=== PATIENT | male | born 1975 | race Caucasian/White ===

== ENCOUNTER 2017-06-15 22:21 | Emergency (ER) | payer SELFPAY ==
[2017-06-15] MEDS ORDERED: Acetaminophen/oxyCODONE 325-5 MG Tab ONE (22:30)
[2017-06-15] MEDS ORDERED: Sodium Chloride 0.9% 1,000 ML IV SCH (23:30)
[2017-06-16] MEDS ORDERED: Morphine 2 MG/ML Syringe IVPUSH ONE (00:16)
[2017-06-16] MEDS ORDERED: Morphine 2 MG/ML Syringe ONE (00:25)
[2017-06-16] MEDS ORDERED: Sodium Chloride 0.9% 1,000 ML IV ONE (11:30)
--- NOTE | 2017-06-16 15:52 | CT ---
DATE OF SERVICE: 06/15/17 CLINICAL DATA: [facility] UNENHANCED BRAIN CT: Multi slice acquisition through the brain without IV contrast was performed. No masses or mass effect. No intracranial hemorrhage. No evidence of acute or subacute infarct. There is soft tissue swelling adjacent to the right maxilla and zygomatic arch on the right. There is a hyperdense collection also, consistent with a hematoma. There is also preseptal soft tissue swelling on the right. I do not see any fractures. IMPRESSION: No acute intracranial abnormalities. [id number] [facility]
--- NOTE | 2017-06-16 15:55 | CT ---
DATE OF SERVICE: 06/15/17 CLINICAL DATA: [facility] CERVICAL SPINE CT: Multislice acquisition from the base of the skull to the top of T1 was performed. Axial images and sagittal and coronal reformations are reviewed. The vertebral bodies are of average height and in good alignment. No acute fracture or dislocation. No lytic or blastic bone lesions. The soft tissues demonstrate nonspecific deep cervical nodes. The soft tissues are otherwise unremarkable. IMPRESSION: No acute abnormalities. [id number] [facility]
--- NOTE | 2017-06-16 16:00 | CT ---
DATE OF SERVICE: 06/15/17 CLINICAL DATA: [facility] UNENHANCED CHEST CT: Multi slice acquisition through the chest without IV contrast was performed. Motion artifact degrades image quality. There are mild atelectatic changes in the dependent portions of both lungs. The lungs are otherwise clear. No pneumothorax. No pleural effusions. No areas of consolidation. The heart size is normal. No pericardial effusion. No hilar or mediastinal adenopathy. No evidence of mediastinal hematoma. No displaced rib fractures. There is an avulsion fracture from the superior anterior aspect of the T12 vertebra with minimal displacement. No retropulsed fragments. IMPRESSION: T12 fracture. The patient's physician was notified of the findings by virtual radiologic preliminary radiology report. [id number] CLINICAL DATA: [facility]. UNENHANCED ABDOMEN AND PELVIC CT: Multislice acquisition through the abdomen and pelvis without IV or oral contrast was performed. No priors. Motion artifact degrades image quality. The unenhanced liver appears normal. The gallbladder appears normal. The spleen appears normal. The pancreas appears normal. The right and left adrenals appears normal. The right and left kidneys appear normal. No nephrocalcinosis or nephrolithiasis. No hydronephrosis or hydroureter. The bladder is fluid filled and appears normal. The appendix is not dilated. No evidence of appendicitis. No free air. No free fluid. No dilated loops of bowel. No aortic aneurysm. No adenopathy. No evidence of hematoma. The fracture through the T12 vertebra is again seen. See thoracic spine CT dictation. No other fractures. There is a sclerotic density in the left ilium superior to the roof of the acetabulum on the left. This most likely represents a bone island. The possibility of sclerotic metastatic should at least be considered. No other significant findings. [id number] [facility]
--- NOTE | 2017-06-16 16:04 | CT ---
DATE OF SERVICE: 06/15/17 CLINICAL DATA: [facility] FACIAL CT: Multislice axial acquisition was performed. Axial images and sagittal and coronal reformations are reviewed. There is soft tissue swelling adjacent to the right maxilla and zygomatic arch on the right. There is a subcutaneous hematoma present. There is also preseptal soft tissue swelling on the right. I do not see any fractures. There is a rounded low density lesion in the right maxillary sinus consistent with a retention cyst or polyp. The paranasal sinuses are otherwise clear. No air fluid levels. The globes and orbital contents appear unremarkable. IMPRESSION: Soft tissue swelling and subcutaneous hematoma on right as discussed above. No fractures. [id number] [facility]
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
== END 2017-06-16 01:05 | disposition home or self-care (01) ==
LOC: LB.ED 22:21
DX: S22.089A Unspecified fracture of T11-T12 vertebra, initial encounter for closed fracture (principal); S00.83XA Contusion of other part of head, initial encounter; I10 Essential (primary) hypertension; F10.120 Alcohol abuse with intoxication, uncomplicated; V89.2XXA Person injured in unspecified motor-vehicle accident, traffic, initial encounter
CPT/HCPCS: 36415; 70450; 70480; 71250; 72125; 72128; 74176; 80053; 84443; 85025; 96374; 99284; A0425; A0429; A9270; G0480; J2270